=== PATIENT | female | born 1985 | race Caucasian/White ===

== ENCOUNTER → 2018-01-07 | Emergency (ER) | payer OTHER ==
[~2018-01-07] VITALS: Ht 167.6 cm; Wt 56.7 kg
[~2018-01-07] MED LIST: TUSSI PRES-B L120 M1 PO
== END | disposition home or self-care (01) ==
LOC: ER 09:56
DX: B34.9 Viral infection, unspecified (principal)

== ENCOUNTER 2018-08-20 04:31 | Emergency (ER) | payer OTHER ==
[~2018-08-20] VITALS: Ht 167.6 cm; Wt 62.1 kg
[2018-08-20] MEDS ORDERED: KETO10TA2 PO (07:33)
== END 2018-08-20 07:32 | disposition home or self-care (01) ==
LOC: ER 04:31
DX: S46.811A Strain of other muscles, fascia and tendons at shoulder and upper arm level, right arm, initial encounter (principal); X50.0XXA Overexertion from strenuous movement or load, initial encounter; Y93.89 Activity, other specified; Y92.89 Other specified places as the place of occurrence of the external cause; Y99.8 Other external cause status

== ENCOUNTER 2019-01-02 12:05 | Emergency (ER) | payer OTHER ==
[~2019-01-02] VITALS: Ht 167.6 cm; Wt 61.2 kg
[~2019-01-02 12:05] MED LIST changes: +KETO10TA2 PO
== END 2019-01-02 18:56 | disposition home or self-care (01) ==
LOC: ER 12:05
DX: O03.9 Complete or unspecified spontaneous abortion without complication (principal)

== ENCOUNTER 2019-12-22 14:44 | Emergency (ER) | payer OTHER ==
[~2019-12-22] VITALS: Ht 167.6 cm; Wt 61.2 kg
== END 2019-12-22 17:45 | disposition home or self-care (01) ==
LOC: ER 14:44
DX: B33.8 Other specified viral diseases (principal); B96.0 Mycoplasma pneumoniae [M. pneumoniae] as the cause of diseases classified elsewhere

== ENCOUNTER 2020-06-05 16:37 | Emergency (ER) | payer OTHER ==
[~2020-06-05] VITALS: Ht 167.6 cm; Wt 64.4 kg
[2020-06-05] MEDS ORDERED: DERMACINRX5000 UNIT ×2 (16:53→16:54)
== END 2020-06-05 20:27 | disposition home or self-care (01) ==
LOC: ER 16:37
DX: R51 Headache (principal); M54.2 Cervicalgia

== ENCOUNTER 2021-08-02 12:45 | Emergency (ER) | payer OTHER ==
[~2021-08-02] VITALS: Ht 167.6 cm; Wt 64.9 kg
[~2021-08-02 12:45] MED LIST changes: +DERMACINRX5000 UNIT
[2021-08-02] MEDS ORDERED: ZITHROMAX200 MG PO (18:37)
== END 2021-08-02 19:05 | disposition home or self-care (01) ==
LOC: ER 12:45
DX: A49.3 Mycoplasma infection, unspecified site (principal); Z03.818 Encounter for observation for suspected exposure to other biological agents ruled out

== ENCOUNTER 2025-08-19 13:52 | Emergency (ER) | payer OTHER ==
[~2025-08-19] VITALS: Ht 167.6 cm; Wt 70.3 kg
[~2025-08-19 13:52] MED LIST changes: +ZITHROMAX200 MG PO
[2025-08-19 15:19] LABS: BASO % 0.9 % (0.1-1.2); EOS # 0.79 (0.04-0.54); EOS % 9.3 % (0.7-7.0); LYMPH # 3.18 (1.18-3.74); LYMPH % 37.4 % (19.3-53.1); MEAN PLATELET VOLUME 9.80 fl (9.4-12.4); MONO # 0.80 (0.24-0.82); MONO % 9.4 % (4.7-12.5); NEUT # 3.64 (1.56-6.13); NEUT % 42.9 % (34.0-71.1); RED CELL DISTRIBUTION WIDTH 13.2 % (11.6-14.4)
[2025-08-19 15:36] LABS: ALT/SGPT 29.0 U/L (12-78); AST/SGOT 17.0 U/L (15-37); BILIRUBIN TOTAL 0.36 mg/dL (0.3-1.2); BUN CREA RATIO 19.0 (7.0-25.0); CREATININE SERUM 0.73 mg/dL (0.55-1.02); GFR 88.3; GLOBULINA 3.8 G/DL (2.4-3.5); GLUCOSE FASTING 91.0 mg/dL (65-100); OSMOLALITY SERUM 289.0 MOSM/KG (275-295)
[2025-08-19 15:51] LABS: URINE APPEARANCE Clear; URINE BILIRRUBIN Negative (NEGATIVE); URINE BLOOD Negative; URINE COLOR Yellow; URINE GLUCOSE Negative (NEGATIVE); URINE KETONE Negative (NEGATIVE); URINE LEUKOCYTE Negative; URINE NITRATE Negative; URINE PROTEIN Negative (NEGATIVE); URINE UROBILINOGEN 0.2 E.U./dl
[2025-08-19 15:55] LABS: URINE BACTERIA 442.7 uL (0.0-1933); URINE EPITHELIAL CELLS 34.7 uL (0.0-38.8); URINE RBC 2.1 uL (0.0-20.8)
[2025-08-19 16:06] LABS: URINE CAST 0.00 uL (0.0-1.40); URINE WBC 1.3 uL (0.0-23.2)
[2025-08-19] MEDS ORDERED: CEFTRIAXONE SODIUM 1,000 MG VIAL ONE (16:25)
[2025-08-19] MEDS ORDERED: CETIRIZINE HCL 5MG/5ML BLIST.PACK PO ONE (16:26)
[2025-08-19] MEDS ORDERED: CEFTRIAXONE SODIUM 1,000 MG VIAL IM ONE (16:30)
== END 2025-08-19 16:40 | disposition home or self-care (01) ==
LOC: ER 13:52
PROVIDERS: General Practice
DX: M54.50 Low back pain, unspecified (principal); Z88.8 Allergy status to other drugs, medicaments and biological substances